=== PATIENT | female | born 1975 | race Caucasian/White ===

== ENCOUNTER 2018-03-21 09:32 | Emergency (ER) | payer MEDICAID ==
[2018-03-21 09:53] VITALS: PULSE 82; RESP 18; TEMP 98.1; O2SAT 100
--- NOTE | 2018-03-21 10:56 | C.PDOC ---
History Of Present Illness Pt c/o left shoulder pain. Denies injury. States she woke up with pain/ stiffness yesterday. Time Seen by Provider: 03/21/18 10:18 Chief Complaint (Nursing): Upper Extremity Problem/Injury History Per: Patient Onset/Duration Of Symptoms: Days (1) Current Symptoms Are (Timing): Still Present Quality: "Pain" Severity: Moderate Exacerbating Factor(s): Strenuous Use Of Affected Area, Movement Additional History Per: Prior Records Past Medical History Reviewed: Historical Data, Nursing Documentation, Vital Signs Vital Signs: Last Vital Signs Temp 98.1 F 03/21/18 09:52 Pulse 82 03/21/18 09:52 Resp 18 03/21/18 09:52 BP 158/101 H 03/21/18 09:52 Pulse Ox 100 03/21/18 10:57 - Medical History PMH: Diverticulitis, Fractures (Right knee), Chronic Pain (right knee pain and instability) - [facility] Procedures OTHER SKIN & SUBQ I D (08/30/13) Family History: States: Unknown Family Hx - Social History Hx Tobacco Use: Yes Hx Alcohol Use: Yes Hx Substance Use: No - Immunization History Hx Tetanus Toxoid Vaccination: No Hx Influenza Vaccination: No Hx Pneumococcal Vaccination: No Review Of Systems Except As Marked, All Systems Reviewed And Found Negative. Constitutional: Negative for: Fever Cardiovascular: Negative for: Chest Pain Respiratory: Negative for: Shortness of Breath Gastrointestinal: Negative for: Vomiting, Abdominal Pain Musculoskeletal: Positive for: Shoulder Pain (left) Skin: Negative for: Rash Neurological: Negative for: Weakness, Numbness Physical Exam - Physical Exam Appears: Non-toxic, No Acute Distress Skin: Normal Color, Warm, Dry, No Rash Head: Atraumatic, Normacephalic Eye(s): bilateral: Normal Inspection, PERRL, EOMI Neck: Normal ROM, No Midline Cervical Tenderness, No Step Off Deformity, Supple Chest: Symmetrical, No Deformity Cardiovascular: Rhythm Regular Respiratory: Normal Breath Sounds, No Accessory Muscle Use Gastrointestinal/Abdominal: Soft, No Tenderness Extremity: Tenderness (left shoulder), No Deformity, No Swelling Extremity: Left: Limited ROM To Joint (Shoulder, due to pain.), Bilateral: Normal Color And Temperature Pulses: Left Radial: Normal Neurological/Psych: Oriented x3, Normal Motor, Normal Sensation ED Course And Treatment O2 Sat by Pulse Oximetry: 100 Pulse Ox Interpretation: Normal Progress Note: Pt was placed in a left arm sling for comfort. Reassessment Condition: Improved Disposition Counseled Patient/Family Regarding: Diagnosis, Need For Followup, Rx Given - Disposition Referrals: Marv Salazar III, MD [Staff Provider] - Disposition: HOME/ ROUTINE Disposition Time: 11:04 Condition: STABLE Additional Instructions: Follow up with your doctor. Follow up with an drilling fluids specialist if symptoms persist. Return to the ER if you develop shortness of breath, fever, chest pain , redness, swelling, weakness, numbness, worsening of symptoms or if you have any other concerns. Prescriptions: Naproxen [Naprosyn] 1 tab PO BID PRN #20 tab PRN Reason: Pain Instructions: Shoulder Pain (DC) Forms: [facility] ([facility]) - Clinical Impression Clinical Impression: Left shoulder pain
[2018-03-21 11:12] VITALS: BP 152/100
== END 2018-03-21 11:15 | disposition home or self-care (01) ==
LOC: C.ER 09:32
DX: M25.512 Pain in left shoulder (principal); Z72.0 Tobacco use
CPT/HCPCS: 96372; 99284; J1885